=== PATIENT | female | born 1995 | race Caucasian/White ===

== ENCOUNTER 2021-08-06 13:51 | Emergency (ER) | payer OTHER ==
[~2021-08-06 13:51] MED LIST: KEFLEX CAP 500500 MG PO
== END 2021-08-06 15:30 | disposition home or self-care (01) ==
LOC: ER1 13:51
DX: U07.1 COVID-19 (principal); F17.210 Nicotine dependence, cigarettes, uncomplicated
CPT/HCPCS: 99284; U0002